=== PATIENT | male | born 1975 | race Caucasian/White ===

== ENCOUNTER 2023-08-17 00:29 | Emergency (ER) | payer MEDICAID, SELFPAY ==
--- NOTE | ~2023-08-17 | XR_ITS ---
EXAMINATION: XR CHEST CLINICAL INFORMATION: Cough. COMPARISON: None available. TECHNIQUE: Frontal view of the chest was obtained. FINDINGS: No significant abnormality is noted involving the heart, lungs, mediastinum, bony thorax or soft tissues. XR/XR chest 1V IMPRESSION: Unremarkable examination.
[2023-08-17 00:37] VITALS: BP 113/77; PULSE 86; RESP 18; TEMP 36.8; O2SAT 96; BMI 25.1
--- NOTE | 2023-08-17 00:59 | ED_ITS ---
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 Related Data Previous Rx's Medication Instructions Recorded albuterol sulfate 90 mcg/actuation 2 puff inhalation Q4-6H PRN 08/17/23 aerosol inhaler (ProAir HFA) shortness of breath or wheezing #8.5 grams benzonatate 200 mg capsule 200 mg PO TID PRN cough #30 caps 08/17/23 cefuroxime axetil 500 mg tablet 500 mg PO BID 7 days #14 tabs 08/17/23 prednisone 20 mg tablet 40 mg (2 x 20 mg) PO DAILY #10 tabs 08/17/23 Allergies Allergy/AdvReac Type Severity Reaction Status Date / Time Seasonal Allergies Allergy Sneezing Verified 08/17/23 00:37 Review of Systems Review of Systems: Yes all other systems are reviewed and are negative [facility] Social History Social History Advance Directives: No Advance Directives Information Provided: No Physical Exam Vital Signs: Vital Signs: Last Vital Signs Temp 98.4 F 08/17/23 01:18 Pulse 66 08/17/23 01:24 Resp 18 08/17/23 01:24 BP 115/71 08/17/23 01:18 Pulse Ox 95 08/17/23 01:18 O2 Del Method Room Air 08/17/23 01:18 BMI result Body Mass Index 25.1 Appearance: Alert. Oriented X3. No acute distress. ENT: Pharynx normal. Oral Mucosa moist Neck: Normal inspection. Neck supple. CVS: Normal heart rate and rhythm. Pulses normal. Respiratory: No respiratory distress. Equal air entry bilateral, bilateral wheezing and conducted sounds Abdomen: Soft and nontender. Bowel sounds are present, Skin: Skin warm and dry. Normal skin color. Normal skin turgor. Extremities: No lower extremity edema. No calf tenderness Neuro: Oriented X 3. Medications Administered Discontinued Medications Generic Name Dose Route Start Last Admin Trade Name Freq PRN Reason Stop Dose Admin Benzonatate 200 mg 08/17/23 01:12 08/17/23 01:33 Benzonatate 100 Mg Capsule PO 08/17/23 01:13 200 mg ONCE ONE Administration Albuterol Sulfate 5 mg/ 0 mg 08/17/23 01:12 08/17/23 01:21 Albuterol/Ipratropium 3 ml INHALE 08/17/23 01:13 2.5 each ONCE ONE Administration Prednisone 60 mg 08/17/23 01:12 08/17/23 01:33 Prednisone 20 Mg Tablet PO 08/17/23 01:13 60 mg ONCE ONE Administration Medical Decision Making Medical Decision Making MDM Narrative: Patient with bronchitis symptoms with wheezing with no prior history in the past will give prednisone antibiotics inhaler Lab Data [facility] Lab Attestation statement: I reviewed the patient's lab results. Labs: Lab Results 08/17/23 Range/Units 01:16 Influenza Type A (PCR) NEGATIVE (Negative) Influenza Type B (PCR) NEGATIVE (Negative) RSV RNA Qual (PCR) NEGATIVE (Negative) SARS-CoV-2 RNA (RT-PCR) NEGATIVE (Negative) Independent Interpretation I performed an independent interpretation of an: Plain X-Ray Radiology Impression Discussion of test interpretation with radiology: I have reviewed the radiologist's reading. Discharge Plan Discharge Clinical Impression: Bronchitis Patient Disposition: Home, Self-Care Instructions: Acute Bronchitis (ED) Additional Instructions: Use inhaler as prescribed Antibiotic and prednisone as prescribed Cough drops Follow with your PCP if not better Prescriptions: New benzonatate 200 mg capsule 200 mg PO TID PRN (Reason: cough) Qty: 30 0RF prednisone 20 mg tablet 40 mg PO DAILY Qty: 10 0RF cefuroxime axetil 500 mg tablet 500 mg PO BID 7 Days Qty: 14 0RF albuterol sulfate [ProAir HFA] 90 mcg/actuation HFA aerosol inhaler 2 puff inhalation Q4-6H PRN (Reason: shortness of breath or wheezing) Qty: 8.5 0RF
[2023-08-17 01:18] VITALS: BP 115/71; PULSE 65; RESP 14; TEMP 36.9; O2SAT 95
[2023-08-17] MEDS: Albuterol Sulfate 5 MG, Albuterol/Iprat 2.5/0.5MG 3 ML 3 ML INHALE (01:21)
[2023-08-17 01:24] VITALS: PULSE 66; RESP 18; O2SAT 96
[2023-08-17] MEDS: Benzonatate 100 MG CAPSULE 200 MG PO (01:33)
[2023-08-17] MEDS: predniSONE 20 MG TABLET 60 MG PO (01:33)
[2023-08-17 02:00] LABS: Influenza A PCR NEGATIVE (Negative); Influenza B PCR NEGATIVE (Negative); Resp Syncy Virus RNA Qual PCR NEGATIVE (Negative); SARS COV2 PCR INHOUSE NEGATIVE (Negative)
[2023-08-17] MEDS: cefuroxime axetiL 500 MG TABLET PO (02:46)
== END 2023-08-17 02:47 | disposition home or self-care (01) ==
PROVIDERS: Emergency Provider Internal Medicine; PCP Internal Medicine
DX: J40 Bronchitis, not specified as acute or chronic (principal); R05.9 Cough, unspecified; Z20.822 Contact with and (suspected) exposure to COVID-19; Z20.828 Contact with and (suspected) exposure to other viral communicable diseases
CPT/HCPCS: 0241U; 71045; 94640; 99284